=== PATIENT | male | born 1960 | race Caucasian/White ===

== ENCOUNTER 2018-08-07 22:54 | Emergency (ER) | payer OTHER ==
[2018-08-08] MEDS: DEXAMETHASONE 10 MG/ML 1 ML INJ IM (01:37)
[2018-08-08] MEDS: DIAZEPAM 5 MG TAB PO (01:37)
[2018-08-08] MEDS: KETOROLAC 60 MG INJ IM (01:38)
== END 2018-08-08 02:59 | disposition home or self-care (01) ==
LOC: FTE 22:54
DX: M54.5 Low back pain (principal); Z96.652 Presence of left artificial knee joint
CPT/HCPCS: 96372; 99284-25